=== PATIENT | male | born 1975 | race Caucasian/White ===

== ENCOUNTER → 2017-01-17 | Outpatient (CLI) | payer OTHER ==
[~2017-01-17] MED LIST: CIPRO 500MG TA500 MG PO; FLAGYL500 M1 PO; KEFLEX 500MG.500 MG PO; LORTAB 5/500 501 TAB PO; NORCO 325 MG-51 TAB PO
--- NOTE | 2017-01-17 11:41 | RADIOLOGY REPORT PS360 ---
HAND-RT 3 VIEWS HISTORY: Middle finger pain METACARPOPHALANGEAL JOINT ORDERING PHYSICIAN: Tommie Cesar MD PATIENT AGE: 41 years COMPARISON: None FINDINGS: No fracture or dislocation. No lytic or blastic change. There is normal mineralization. The joint spaces are well-preserved. No significant degenerative/arthritic changes. No erosive changes evident. IMPRESSION: Negative right hand, no acute finding
--- NOTE | 2017-01-17 16:08 | RADIOLOGY REPORT PS360 ---
CT ABD PELVIS W/ CONTRAST CLINICAL INDICATION: Abdominal pain, diverticulitis, follow-up pancreatic abnormality PANCREATIC ABNORMALITY F/U DIVERTICULITIS ORDERING PHYSICIAN: Tommie Cesar MD PATIENT AGE: 41 years COMPARISON: 11/09/2016 TECHNIQUE: Axial images obtained with sagittal and coronal reformats. 30 seconds, 60 seconds, and 5 minute delayed images are obtained PROCEDURE: Oral Contrast: Redicat IV Contrast: 75 mL [id number] . FINDINGS: Lung bases are clear. The liver, gallbladder, spleen, and adrenal glands have an unremarkable appearance. Pancreatic head is once again noted be somewhat prominent with nodular contour involving the lateral aspect of the pancreatic head. Probably related to anatomic variant. There is normal enhancement. No obvious pancreatic mass evident. No evidence of pancreatitis. There is diverticulosis once again noted of the sigmoid colon with some mild residual thickening of the sigmoid colon. The previously noted diverticulitis has improved. A prominent diverticulum is noted in the sigmoid region and was likely the area that was inflamed previously Unremarkable appendix. No abnormal fluid collections. Scattered small nodes are present in the abdomen. IMPRESSION: 1. Resolution of previously noted diverticulitis. There remains some mild thickening of the sigmoid colon which is nonspecific and may be due to nondistention. No abscess. 2. No change mild nodular contour of the pancreatic head probably related to anatomic variant. No definite pancreatic mass evident
== END ==
LOC: RAD 10:18
DX: Q45.3 Other congenital malformations of pancreas and pancreatic duct (principal); M79.641 Pain in right hand
CPT/HCPCS: Q9967